=== PATIENT | female | born 1950 | race Caucasian/White ===

== ENCOUNTER 2021-07-18 09:31 | Outpatient (CLI) | payer MEDICARE, BC | END 2021-07-18 09:32 | disposition home or self-care (01) | LOC: CSHMRI 09:31 | PROVIDERS: ATTEND Psychiatry & Neurology Neurology | DX: R26.81 Unsteadiness on feet (principal); M47.892 Other spondylosis, cervical region | CPT/HCPCS: 70553; 72156 ==

== ENCOUNTER 2021-08-11 11:48 | Outpatient (CLI) | payer MEDICARE, BC | END 2021-08-11 11:49 | disposition home or self-care (01) | LOC: CSHCT 11:48 | PROVIDERS: ATTEND Neurological Surgery | DX: G95.19 Other vascular myelopathies (principal); Z98.890 Other specified postprocedural states; M47.816 Spondylosis without myelopathy or radiculopathy, lumbar region; T84.216A Breakdown (mechanical) of internal fixation device of vertebrae, initial encounter | CPT/HCPCS: 72131 ==

== ENCOUNTER 2021-09-04 09:49 | Outpatient (CLI) | payer MEDICARE, BC ==
[2021-09-05 00:06] LABS: SARS-CoV-2 PCR by NAA Not Detected (NotDetected)
== END 2021-09-04 09:50 | disposition home or self-care (01) ==
LOC: CSHLAB 09:49
PROVIDERS: ATTEND Internal Medicine Cardiovascular Disease
DX: Z20.822 Contact with and (suspected) exposure to COVID-19 (principal); R06.02 Shortness of breath
CPT/HCPCS: U0003; U0005

== ENCOUNTER 2021-12-05 10:31 | Outpatient (CLI) | payer MEDICARE, BC | END 2021-12-05 10:32 | disposition home or self-care (01) | LOC: CSHMAMMO 10:31 | PROVIDERS: ATTEND Internal Medicine | DX: Z12.31 Encounter for screening mammogram for malignant neoplasm of breast (principal) | CPT/HCPCS: 77063; 77067 ==

== ENCOUNTER 2022-03-18 18:43 | Emergency (ER) | payer MEDICARE, BC ==
[2022-03-18] MEDS ORDERED: Boostrix 0.5 ML (Tdap) VIAL (>/=7 yrs of age) ONE (20:33)
== END 2022-03-18 20:38 | disposition home or self-care (01) ==
LOC: CSHERS 18:43
DX: S01.01XA Laceration without foreign body of scalp, initial encounter (principal); Z23 Encounter for immunization; W18.30XA Fall on same level, unspecified, initial encounter
CPT/HCPCS: 12001; 70450; 72125; 90471; 90715

== ENCOUNTER 2022-09-24 14:51 | Emergency (ER) | payer MEDICARE, BC ==
[2022-09-24 16:32] LABS: #Eosinphils 0.1 10x3/uL (0.0-0.5); #Monocytes 0.4 10x3/uL (0.0-1.1); #Neutrophils 2.5 10x3/uL (1.5-8.4); %Basophils 0.9 % (0.0-2.0); %Eosinophils 2.4 % (0.0-6.0); %Lymphocytes 30.9 % (18.0-47.0); %Monocytes 9.3 % (0.0-10.0); %Neutrophils 56.3 % (40.0-75.0); Hemoglobin 15.7 g/dL (12.0-15.5); Mean Corpuscular HGB CONC 33.4 g/dL (32.0-36.0); Mean Corpuscular Hemoglobin 30.8 pg (27.0-33.0); Mean Corpuscular Volume 92.3 fl (81.6-98.3); Mean Platelet Volume 10.5 fl (7.4-10.4); Platelet Count 228 10x3/uL (150-450); RBC Distribution Width 12.2 % (11.5-14.5); Red Blood Cell (RBC) Count 5.09 10x6/uL (3.90-5.03); White Blood Cell (WBC) Count 4.5 10x3/uL (3.5-10.5)
[2022-09-24] MEDS ORDERED: Nitroglycerin 0.4 MG TAB 1 EACH ONE ×2 (17:10→17:12)
[2022-09-24] MEDS ORDERED: Nitroglycerin 2% Ointment 1 INCH/1 GM Packet ONE (17:11)
[2022-09-24] MEDS ORDERED: Aspirin Chewable 81 MG TAB ONE (17:11)
[2022-09-24 17:14] LABS: CKMB 5.8 ng/mL (0-6.6)
[2022-09-24 17:24] LABS: ALT (SGPT) 27 U/L (8-55); AST (SGOT) 30 U/L (5-34); Albumin 4.8 g/dL (3.4-4.8); Alkaline Phosphatase 69 U/L (40-110); Anion Gap 16 mmol/L (10-20); BUN (Urea Nitrogen) 17 mg/dL (9.8-20.1); Bilirubin, Total 0.4 mg/dL (0.2-1.2); CK (CPK) 109 U/L (29-168); Calc. Creatinine Clearance 0 mL/min (70-130); Calcium 10.8 mg/dL (7.8-10.44); Carbon Dioxide 26 mmol/L (23-31); Chloride 102 mmol/L (98-107); Estimated GFR 58; Globulin 2.7 g/dL (2.4-3.5); Glucose 111 mg/dL (80-115); Lipase 63 U/L (8-78); Potassium 3.8 mmol/L (3.5-5.1); Protein, Total 7.5 g/dL (5.8-8.1); Sodium 140 mmol/L (136-145)
[2022-09-24] MEDS ORDERED: Heparin 5,000 UNITS/ML VIAL ONE ×2 (18:46→18:52)
[2022-09-24] MEDS ORDERED: Heparin 25,000 units/D5W 500 ML ONE (18:47)
== END 2022-09-24 21:08 | disposition short-term general hospital (02) ==
LOC: CSHERS 14:51
DX: I26.99 Other pulmonary embolism without acute cor pulmonale (principal); R94.31 Abnormal electrocardiogram [ECG] [EKG]
CPT/HCPCS: 71045; 71275; 80053; 82550; 82553; 83690; 84484; 85025; 93005; J1644